=== PATIENT | female | born 1990 | race Two or more races ===

== ENCOUNTER 2024-08-19 22:54 | Emergency (ER) | payer OTHER ==
[~2024-08-19] VITALS: Ht 160 cm; Wt 90.0 kg
[2024-08-20 00:11] VITALS: TEMP 98
[2024-08-20 00:25] LABS: COVID AG,FIA SOURCE NASAL SWAB
[2024-08-20 00:41] LABS: SARS-COV2 (COVID) ANTIGEN,FIA Negative (Negative)
[2024-08-20 00:42] LABS: INFLUENZA TYPE A NEGATIVE FOR TYPE A (NEGATIVE); INFLUENZA TYPE B NEGATIVE FOR TYPE B (NEGATIVE)
[2024-08-20] MEDS ORDERED: IBUP-1492 PO (01:42)
[2024-08-20] MEDS ORDERED: ACET-3385 PO (01:42)
[2024-08-20] MEDS: IBUPROFEN 600 MG TABLET PO ONE (02:01)
[2024-08-20] MEDS: ACETAMINOPHEN 500 MG TABLET PO ONE (02:01)
[2024-08-20 02:07] VITALS: BP 120/60; PULSE 65; RESP 16; O2SAT 100
== END 2024-08-20 02:07 | disposition home or self-care (01) ==
LOC: EMS 22:56
DX: B34.9 Viral infection, unspecified (principal); R05.9 Cough, unspecified; R09.81 Nasal congestion; R51.9 Headache, unspecified; Z20.822 Contact with and (suspected) exposure to COVID-19
CPT/HCPCS: 87804; 99283

== ENCOUNTER 2024-11-27 18:02 | Emergency (ER) | payer OTHER ==
[~2024-11-27] VITALS: Ht 162.6 cm; Wt 86.4 kg
[~2024-11-27 18:02] MED LIST: ACET-3385 PO; IBUP-1492 PO
[2024-11-27 18:07] VITALS: BP 129/67; PULSE 78; RESP 18; TEMP 98.2; O2SAT 98
[2024-11-27 19:03] LABS: BASOPHILS % (AUTO) 0.3 % (0.0-2.0); EOSINOPHILS % (AUTO) 3.9 % (1.0-6.0); HEMATOCRIT 41.6 % (36-46); HEMOGLOBIN 13.7 g/dL (12.0-16.0); LYMPHOCYTES # (AUTO) 2.1 K/uL (1.0-4.8); LYMPHOCYTES % (AUTO) 28.2 % (22.0-44.0); MEAN CORPUSCULAR HEMOGLOBIN 29.1 pg (26.0-34.0); MEAN CORPUSCULAR HGB CONC 32.9 G/dL (31.0-37.0); MEAN CORPUSCULAR VOLUME 89 fL (80-100); MONOCYTES # (AUTO) 0.8 K/uL (0.1-1.0); MONOCYTES % (AUTO) 10.8 % (2.0-9.0); NEUTROPHILS # (AUTO) 4.1 K/uL (1.8-7.7); NEUTROPHILS % (AUTO) 56.8 % (40.0-70.0); PLATELET COUNT (AUTO) 271 K/uL (150-450); RED CELL DISTRIBUTION WIDTH 13.8 % (11.5-14.5); WHITE BLOOD COUNT (AUTO) 7.3 K/uL (4.5-11.0)
[2024-11-27 19:09] LABS: ANION GAP 9 mmol/L (8-16); CALCIUM, TOTAL 9.1 mg/dL (8.8-10.5); CARBON DIOXIDE 29 mmol/L (22-29); CHLORIDE 104 mmol/L (98-107); CREATININE 0.62 mg/dL (0.60-1.30); GLOMERULAR FILTR. RATE CALC > 60 mL/min (>60); GLUCOSE,RANDOM 99 mg/dL (70-110); LIPASE 22 U/L (16-77); POTASSIUM 3.9 mmol/L (3.5-5.1); SODIUM SERUM 142 mmol/L (136-145); UREA NITROGEN, BLOOD 10 mg/dL (7-18)
[2024-11-27 19:58] LABS: APPEARANCE,URINE CLEAR (CLEAR); BILIRUBIN,URINE NEGATIVE (NEGATIVE); COLOR,URINE COLORLESS (YELLOW); GLUCOSE, URINE (UA) NEGATIVE (NEGATIVE); KETONES,URINE NEGATIVE (NEGATIVE); LEUKOCYTE ESTERASE ,URINE NEGATIVE (NEGATIVE); NITRATE,URINE NEGATIVE (NEGATIVE); OCCULT BLOOD,URINE NEGATIVE (NEGATIVE); PH,URINE 5.5 (5.0-8.0); PROTEIN,URINE NEGATIVE (NEGATIVE); SPECIFIC GRAVITIY, URINE 1.007 (1.003-1.030); UROBILINOGEN,URINE <=1.0 mg/dL (<=1.0)
[2024-11-27] MEDS ORDERED: IBUP-1554 PO (21:17)
[2024-11-27] MEDS ORDERED: ACET-66 PO (21:17)
== END 2024-11-27 21:25 | disposition home or self-care (01) ==
LOC: EMS 18:02
DX: N92.1 Excessive and frequent menstruation with irregular cycle (principal)
CPT/HCPCS: 80048; 81003; 83690; 84703; 85025; 99283